=== PATIENT | male | born 1985 | race Caucasian/White ===

== ENCOUNTER 2020-05-23 13:13 | Outpatient (CLI) | payer BC, SELFPAY ==
[2020-05-23] MEDS: iohexol 300 mg/mL 50 mL Btl PO (14:01)
--- NOTE | 2020-05-23 15:00 | CT_ITS ---
WS: [id number] CT ABDOMEN PELVIS TECHNIQUE: Noncontrast CT of the abdomen and pelvis with coronal and sagittal reformatted images. CLINICAL INFORMATION: large ventral hernia, Abdomen RUQ COMPARISON: 7 DLP: 899.[address] scans at [facility] use at least one of these dose optimization techniques: automat ed exposure control; mA and/or kV adjustment per patient size (includes targeted exams where dose is matched to clinical indication); or iterative reconstruction. FINDINGS: Hepatomegaly. Diffuse fatty infiltration of the liver. Lung bases are well aerated. Normal noncontras t spleen. Normal GE junction. Fatty atrophy of the pancreas. Adrenal glands are normal. No hydronephr osis in either kidney. Normal caliber abdominal aorta. Sigmoid diverticulosis. No evidence of acute diverticulitis. No evidence of high-grade small or large bowel obstruction. No abdominal or pelvic lymphadenopathy. CT/CT abdomen pelvis wo con [id number] IMPRESSION: 1. No hydronephrosis in either kidney. No obstructing renal or ureteral calcul i. 2. Normal caliber abdominal aorta. 3. Hepatomegaly with diffuse fatty infiltration of the liver. 4. No evidence of ventral abdominal wall hernia. 5. Tiny incidental fat-containing umbilical hernia.
== END 2020-05-23 13:14 | disposition home or self-care (01) ==
LOC: RADWPI 13:18
PROVIDERS: PCP Family Medicine Adult Medicine; Visit Provider Family Medicine Adult Medicine
DX: K43.9 Ventral hernia without obstruction or gangrene (principal); R16.0 Hepatomegaly, not elsewhere classified; K76.0 Fatty (change of) liver, not elsewhere classified; K42.9 Umbilical hernia without obstruction or gangrene
CPT/HCPCS: 74176; Q9967

== ENCOUNTER → 2020-12-12 08:21 | Outpatient (BNVA) | payer BC, SELFPAY | PROVIDERS: PCP Family Medicine Adult Medicine; Visit Provider Family Medicine Adult Medicine | DX: E66.01 Morbid (severe) obesity due to excess calories (principal); E11.9 Type 2 diabetes mellitus without complications; Z00.00 Encounter for general adult medical examination without abnormal findings; J45.909 Unspecified asthma, uncomplicated; Z13.6 Encounter for screening for cardiovascular disorders | CPT/HCPCS: 80053; 83036; 84443; 85025 ==

== ENCOUNTER → 2021-07-10 11:24 | Outpatient (BNVA) | payer BC, SELFPAY | PROVIDERS: PCP Family Medicine Adult Medicine; Visit Provider Registered Nurse Neonatal Intensive Care | DX: Z20.822 Contact with and (suspected) exposure to COVID-19 (principal) | CPT/HCPCS: 87635 ==

== ENCOUNTER 2021-09-10 07:45 | Emergency (ER) | payer BC, SELFPAY ==
[2021-09-10 08:16] VITALS: BP 166/107; PULSE 81; RESP 16; TEMP 37; O2SAT 96; BMI 43.5
--- NOTE | 2021-09-10 08:35 | XR_ITS ---
WS: [id number] Portable AP upright chest, 09/10/2021 Clinical Data: asthma attack Comparison: Portable chest, 04/02/2019. Findings: No nodules, masses or effusions are seen. The heart is normal. The pulmonary vascularity is not increased. No pneumonia or pneumothorax is seen. XR/XR chest 1V portable [id number] Impression: Negative chest.
--- NOTE | 2021-09-10 11:39 | W.ED.SOB ---
HPI - SOB/Dyspnea General: Chief Complaint: Shortness of Breath/Dyspnea Stated Complaint: Asthma problems Time Seen by Provider: 09/10/21 11:22 History of Present Illness: HPI Narrative: Patient is a 36-year-old male who comes to the ED with asthma attack. Patient has a history of asthma. His symptoms started last night after he mowed the lawn. He started having some wheezing and shortness of breath. Denies any cough, chest pains, fevers or chills or any other symptoms. he used his albuterol inhaler a couple times last night and this morning and it did not help. Associated symptoms: Deny abdominal pain, chest pain, fever(s), nausea, orthopnea, palpitations or vomiting Review of Systems Const: Denies: fever(s), chills or fatigue Eyes: Denies: change in vision or eye discomfort ENMT: Denies: throat pain, odynophagia, nasal discharge or nasal congestion Card: Denies: chest pain, palpitations, edema, swelling of feet/ankles, dyspnea on exertion or orthopnea Resp: Reports: dyspnea and wheezing; Denies: productive cough or non-productive cough GI: Denies: abdominal pain, nausea, vomiting, diarrhea, constipation or hematochezia : Denies: flank pain, difficulty urinating, dysuria or hematuria Musc: Denies: neck pain, back pain or extremity swelling Skin/Breast: Denies: rash or new lesions Neuro: Denies: headache(s), numbness in extremities or weakness in extremities PFS ED PFSH: Medical History Asthma Depressed Diabetes mellitus, new onset Encounter for wellness examination Morbid obesity with BMI of 45.0-49.9, adult Umbilical hernia Family History Denies family history of Anesthesia complication Bleeding disorder Social History Smoking and tobacco status: current every day smoker smokeless tobacco Smokeless tobacco user: snuff Alcohol intake: never Current occupational status: employed Physical Exam Const: COMMON NORMALS: no acute distress, patient oriented x3 and alert GENERAL APPEARANCE: cooperative HENMT: COMMON NORMALS: normocephalic HEAD & SCALP: normocephalic MOUTH: Normal oral and palatal mucosa present THROAT: posterior oropharynx normal and uvula midline Neck/C-Spine: COMMON NORMALS: supple GENERAL: Yes normal visual inspection Resp: COMMON NORMALS: normal respiratory effort, No retractions and No use of accessory muscles AUSCULTATION: wheezes expiratory wheezes and throughout Cardio: COMMON NORMALS: regular rate, regular rhythm, S1 normal heart sound present, S2 normal heart sound present, No gallops present (Cardio), No clicks present (Cardio), No murmurs present (Cardio) and Peripheral pulses 2+ throughout RATE: regular rate RHYTHM: regular rhythm HEART SOUNDS: S1 normal heart sound present and S2 normal heart sound present PERIPHERAL PULSES: Peripheral pulses 2+ throughout GI: COMMON NORMALS: Normal to inspection, nondistended, normoactive bowel sounds present, Soft to palpation, non-tender and no masses PALPATION: Yes Soft to palpation : COMMON NORMALS: Yes no CVA tenderness BLADDER/KIDNEY EXAM: Yes no CVA tenderness Back/Pelvis: COMMON NORMALS: no CVA tenderness Extremity: COMMON NORMALS: normal to inspection Neuro: COMMON NORMALS: patient oriented x3 and moves all extremities SENSORIUM/ORIENTATION: Yes alert Skin: GENERAL SKIN EXAM: dry skin Course Vital Signs: Vital signs: Vital Signs Temperature 98.6 F 09/10/21 08:16 Pulse Rate 80 09/10/21 13:03 Respiratory Rate 17 09/10/21 12:57 Blood Pressure 166/107 09/10/21 08:16 Pulse Oximetry 95 09/10/21 12:57 MDM - SOB/Dyspnea Medical Decision Making Patient is a 36-year-old male comes to the ED with an asthma attack. Patient has a past medical history of asthma and says he said developing some wheezing and shortness of breath after mowing grass yesterday. He used an albuterol inhaler at home and does not improved his symptoms. Vitals are stable. Patient appears nontoxic and in no acute distress or pain. Patient does have wheezing throughout all lung saenz upon exam. He was given a dose of Solu-Medrol and a DuoNeb breathing treatment while here in the ED and his symptoms improved. Chest x-ray showed no acute findings. He was diagnosed with an asthma exacerbation. Discharged home with a prescription for prednisone. Follow-up with PCP in 5 to 7 days for reevaluation. Return ED precautions given. Patient is to agree with plan. Lab Data Labs/Radiology: Radiology Impressions Chest X-Ray 09/10/21 08:35 Impression: Negative chest. Discharge Plan Discharge Patient Disposition: Home Clinical Impression: Asthma exacerbation Qualifiers: Asthma severity: mild Asthma persistence: intermittent Qualified Code(s): J45.21 - Mild intermittent asthma with (acute) exacerbation Condition: Stable Prescriptions: New prednisone 20 mg tablet 20 mg PO BID 5 Days Qty: 10 0RF No Action metformin 500 mg tablet 500 mg PO BID Qty: 60 5RF Rx Instructions: 340 B Medications albuterol sulfate 2.5 mg/0.5 mL solution for nebulization 2.5 mg inhalation ONCE Qty: 1 0RF montelukast [Singulair] 10 mg tablet 10 mg PO DAILY Qty: 30 0RF (DME) blood-glucose meter [OneTouch Verio Reflect Meter] Misc See Rx Instructions .Route Qty: 1 0RF Rx Instructions: As directed, TEST ONCE A DAY. (DME) lancets [OneTouch Delica Plus Lancet] 33 gauge misc See Rx Instructions .Route Qty: 100 0RF Rx Instructions: As directed, TEST ONCE A DAY (DME) OneTouch Ultra Test Strip See Rx Instructions .Route Qty: 100 0RF Rx Instructions: As directed, TEST ONCE A DAY. Discharge Orders: Discharge ED (Routine); Ordered 09/10/21 Ordered By: Marco Hannon Referrals: Hemanth Fierro MD [Primary Care Provider] - Discharge Diet: Regular Discharge Activity: Increase activity as tolerated Patient Instructions: Asthma Exacerbation - Adult, Wheezing (ED) Activity Restrictions/Additional Instructions: Follow-up with medical provider as directed in the next 5 to 7 days for reevaluation. Take medications as prescribed. Return to the ER or your medical provider if condition worsens. Please read and understand discharge instructions. Thank you for choosing [facility] for your healthcare needs today. Please realize this is an emergency room and that we are providing you with a medical screening exam and this may not be complete and all inclusive of all the testing and or work up that you may need to determine your ailment or severity of your illness. It is very important that you follow up as instructed or that you return to the Emergency Department should you have concerns or if your condition changes or worsens in any way. Stand Alone Forms: Work/School Release Coding Level of Care Code ED [employer] for Chg Fwd Exam Comprehensive
[2021-09-10 12:57] VITALS: PULSE 82; RESP 17; O2SAT 95
[2021-09-10] MEDS: ipratropium-albuterol 3 mL Neb 6 ML INHALATION (12:57)
[2021-09-10 13:03] VITALS: PULSE 80
== END 2021-09-10 13:00 | disposition home or self-care (01) ==
PROVIDERS: Emergency Provider Physician Assistant; PCP Family Medicine Adult Medicine
DX: J45.21 Mild intermittent asthma with (acute) exacerbation (principal); F17.220 Nicotine dependence, chewing tobacco, uncomplicated
CPT/HCPCS: 71045; 94640; 96372; 99283; J2930

== ENCOUNTER 2021-10-26 01:14 | Emergency (ER) | payer BC, SELFPAY ==
--- NOTE | 2021-10-26 01:15 | XRR_ITS ---
PROCEDURE INFORMATION: Exam: XR Chest Exam date and time: 10/26/2021 1:18 AM Age: 36 years old Clinical indication: Cough and shortness of breath; Patient HX: Cough with SOB. History of asthma. TECHNIQUE: Imaging protocol: XR of the chest. Views: 1 view. COMPARISON: CR XR chest 1V portable [id number] 09/10/2021 8:40 AM FINDINGS: Lungs: Unremarkable. No consolidation. Pleural spaces: Unremarkable. No pleural effusion. No pneumothorax. Heart/Mediastinum: Unremarkable. No cardiomegaly. Bones/joints: Unremarkable. XR/XR chest 1V portable [id number] IMPRESSION: No acute findings.
[2021-10-26 01:19] VITALS: BP 158/108; PULSE 98; RESP 24; TEMP 36.9; O2SAT 91; BMI 43.4
--- NOTE | 2021-10-26 01:23 | W.ED.SOB ---
HPI - SOB/Dyspnea General: Chief Complaint: Shortness of Breath/Dyspnea Stated Complaint: SOB Time Seen by Provider: 10/26/21 01:15 Source: patient Mode of arrival: ambulatory History of Present Illness: HPI Narrative: 36-year-old male who has a long history of asthma states that he had mowed the yard on Friday and since and has had increased wheezing. He states he does have a nebulizer at home and he is just had increased shortness of breath and wheezing. States it is worse with activity improved with rest. Denies any cough denies any fever. Denies any chest pain. Associated symptoms: Deny abdominal pain, chest pain, fever(s), nausea or vomiting Review of Systems Const: Denies: fever(s), chills, body aches or change in appetite Eyes: Denies: blurry vision or eye discomfort ENMT: Denies: throat pain or dental pain Card: Denies: chest pain Resp: Reports: dyspnea and wheezing GI: Denies: abdominal pain, nausea, vomiting or diarrhea : Denies: dysuria Musc: Denies: neck pain or back pain Skin/Breast: Denies: rash Neuro: Denies: headache(s) Psych: Denies: depression Gordy/Lymph: Denies: easy bruising All/Imm: Denies: urticaria PFSH ED PFSH: Medical History Asthma Depressed Diabetes mellitus, new onset Encounter for wellness examination Morbid obesity with BMI of 45.0-49.9, adult Umbilical hernia Family History Denies family history of Anesthesia complication Bleeding disorder Social History Smoking and tobacco status: current every day smoker smokeless tobacco Smokeless tobacco user: snuff Alcohol intake: never Current occupational status: employed Physical Exam Const: COMMON NORMALS: no acute distress, patient oriented x3 and healthy appearing HENMT: COMMON NORMALS: normocephalic and atraumatic HEAD & SCALP: normocephalic and atraumatic Eye: COMMON NORMALS: Equal, round and reactive pupils present and EOMs intact bilaterally PUPIL: Yes Equal, round and reactive pupils present Neck/C-Spine: COMMON NORMALS: full ROM and supple Chest: COMMONS NORMALS: normal inspection of the chest and normal palpation of entire chest wall Resp: COMMON NORMALS: normal respiratory effort, No retractions and No use of accessory muscles AUSCULTATION: wheezes Cardio: COMMON NORMALS: regular rate, regular rhythm and No murmurs present (Cardio) RATE: regular rate RHYTHM: regular rhythm GI: COMMON NORMALS: Normal to inspection, nondistended, normoactive bowel sounds present, Soft to palpation, non-tender and no masses PALPATION: Yes Soft to palpation Extremity: COMMON NORMALS: normal to inspection and full ROM Neuro: COMMON NORMALS: patient oriented x3, moves all extremities and no focal motor deficits Psych: COMMON NORMALS: mental status grossly normal, Normal thought process present and cooperative THOUGHT PROCESS: Normal thought process present Skin: COMMON NORMALS: no rashes or lesions noted and no wounds GENERAL SKIN EXAM: no rashes or lesions noted Course Vital Signs: Vital signs: Vital Signs Temperature 98.4 F 10/26/21 01:34 Pulse Rate 98 10/26/21 01:34 Respiratory Rate 24 H 10/26/21 01:34 Blood Pressure 158/108 10/26/21 01:34 Pulse Oximetry 91 10/26/21 01:34 MDM - SOB/Dyspnea Medical Decision Making Breathing treatmentPatient presents here with asthma exacerbation he feels much improved here after his steroids x-ray here is normal we will prescribe him albuterol with a 5-day course of prednisone he is to follow-up with PCP and return if worsening he understands agrees to plan. Lab Data : 10/26/21 01:24 10/26/21 01:24 Labs/Radiology: Laboratory Results WBC 9.0 10^3/uL (4.0-10.0) 10/26/21 01:24 RBC 5.36 10^6/uL (4.1-5.3) H 10/26/21 01:24 Hgb 15.5 g/dL (11.7-16.6) 10/26/21 01:24 Hct 44.5 % (42.0-52.0) 10/26/21 01:24 MCV 83.0 fl (80-94) 10/26/21 01:24 MCH 28.9 pg (28.0-34.0) 10/26/21 01:24 MCHC 34.8 g/dL (30.0-36.0) 10/26/21 01:24 RDW 11.9 % (12.1-15.1) L 10/26/21 01:24 Plt Count 236 10^3/cmm (130-400) 10/26/21 01:24 MPV 10.7 fL (7.4-10.4) H 10/26/21 01:24 Neut % (Auto) 50.7 % 10/26/21 01:24 Lymph % (Auto) 32.9 % 10/26/21 01:24 Mcculloch % (Auto) 10.1 % 10/26/21 01:24 Eos % (Auto) 4.9 % 10/26/21 01:24 Baso % (Auto) 0.8 % 10/26/21 01:24 Neut # (Auto) 4.57 10^3/uL (1.8-7.7) 10/26/21 01:24 Lymph # (Auto) 3.0 10^3/uL (0.8-4.8) 10/26/21 01:24 Mcculloch # (Auto) 0.9 10^3/uL (0.2-0.9) 10/26/21 01:24 Eos # (Auto) 0.4 10^3/uL (0.0-0.8) 10/26/21 01:24 Baso # (Auto) 0.1 10^3/uL (0.0-0.1) 10/26/21 01:24 Nucleated RBC % (auto) 0 % 10/26/21 01:24 Nucleated RBCs # 0.0 /100WBC 10/26/21 01:24 Sodium 137 mmol/L (136-145) 10/26/21 01:24 Chloride 98 mmol/L (98-107) 10/26/21 01:24 Carbon Dioxide 27 mmol/L (22-29) 10/26/21 01:24 BUN 12 mg/dL (6-20) 10/26/21 01:24 Creatinine 0.8 mg/dL (0.7-1.2) 10/26/21 01:24 GFR Calculation 109.4 mL/min (90-130) 10/26/21 01:24 Calculated Osmolality 295 mOsm/kg (285-295) 10/26/21 01:24 Calcium 9.1 mg/dL (8.5-10.5) 10/26/21 01:24 Total Bilirubin 0.4 mg/dL (0.15-1.2) 10/26/21 01:24 AST 17 U/L (0-40) 10/26/21 01:24 ALT 31 U/L (0-41) 10/26/21 01:24 Alkaline Phosphatase 87 IU/L (40-130) 10/26/21 01:24 Total Protein 7.6 g/dL (6.6-8.7) 10/26/21 01:24 Albumin 4.3 g/dL (3.5-5.2) 10/26/21 01:24 Globulin 3.3 g/dL (1.3-4.6) 10/26/21 01:24 Lipase 32 U/L (13-60) 10/26/21 01:24 Discharge Plan Discharge Patient Disposition: Home Clinical Impression: Asthma with exacerbation Condition: Stable Prescriptions: New prednisone 50 mg tablet 50 mg PO DAILY Qty: 5 0RF albuterol sulfate 90 mcg/actuation HFA aerosol inhaler 2 inh INHALATION Q6H PRN (Reason: shortness of breath or wheezing) Qty: 8 0RF No Action metformin 500 mg tablet 500 mg PO BID Qty: 60 5RF Rx Instructions: 340 B Medications albuterol sulfate 2.5 mg/0.5 mL solution for nebulization 2.5 mg inhalation ONCE Qty: 1 0RF montelukast [Singulair] 10 mg tablet 10 mg PO DAILY Qty: 30 0RF (DME) blood-glucose meter [OneTouch Verio Reflect Meter] Misc See Rx Instructions .Route Qty: 1 0RF Rx Instructions: As directed, TEST ONCE A DAY. (DME) lancets [OneTouch Delica Plus Lancet] 33 gauge misc See Rx Instructions .Route Qty: 100 0RF Rx Instructions: As directed, TEST ONCE A DAY (DME) OneTouch Ultra Test Strip See Rx Instructions .Route Qty: 100 0RF Rx Instructions: As directed, TEST ONCE A DAY. 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
[2021-10-26 01:34] VITALS: BP 158/108; PULSE 98; RESP 24; TEMP 36.9; O2SAT 91
[2021-10-26] MEDS: ondansetron 2 mg/ML SDV 2 mL 4 MG IVP (01:34)
[2021-10-26 01:56] LABS: Basophils # 0.1 10^3/uL (0.0-0.1); Basophils % 0.8 %; Eosinophils # 0.4 10^3/uL (0.0-0.8); Eosinophils % 4.9 %; Hematocrit 44.5 % (42.0-52.0); Hemoglobin 15.5 g/dL (11.7-16.6); Lymphocytes % 32.9 %; Mean Corpuscular HGB Conc 34.8 g/dL (30.0-36.0); Mean Corpuscular Hemoglobin 28.9 pg (28.0-34.0); Mean Platelet Volume 10.7 fL (7.4-10.4); Monocytes # 0.9 10^3/uL (0.2-0.9); Monocytes % 10.1 %; Neutrophils # 4.57 10^3/uL (1.8-7.7); Neutrophils % 50.7 %; Nucleated Red Blood Cells % 0 %; Platelet Count 236 10^3/cmm (130-400); Red Blood Count 5.36 10^6/uL (4.1-5.3); Red Cell Distribution Width 11.9 % (12.1-15.1)
[2021-10-26 02:00] VITALS: PULSE 100; RESP 18; O2SAT 97
[2021-10-26] MEDS: ipratropium-albuterol 3 mL Neb INHALATION (02:00)
[2021-10-26 02:10] VITALS: PULSE 108
[2021-10-26 02:15] LABS: Alanine Aminotransferase 31 U/L (0-41); Albumin Level 4.3 g/dL (3.5-5.2); Alkaline Phosphatase 87 IU/L (40-130); Aspartate Amino Transferase 17 U/L (0-40); Blood Urea Nitrogen 12 mg/dL (6-20); Calcium 9.1 mg/dL (8.5-10.5); Carbon Dioxide 27 mmol/L (22-29); Chloride 98 mmol/L (98-107); Globulin 3.3 g/dL (1.3-4.6); Glomerular Filtration Rate 109.4 mL/min (90-130); Glucose 299 mg/dL (65-115); Lipase 32 U/L (13-60); Osmolality Calculated 295 mOsm/kg (285-295); Sodium 137 mmol/L (136-145); Total Bilirubin 0.4 mg/dL (0.15-1.2); Total Protein 7.6 g/dL (6.6-8.7)
[2021-10-26 02:20] LABS: Anion Gap 16.1 (5-19); Potassium 4.1 mmol/L (3.5-5.1)
[2021-10-26 02:34] VITALS: BP 137/93; PULSE 89; RESP 24; TEMP 36.9; O2SAT 95
== END 2021-10-26 02:35 | disposition home or self-care (01) ==
PROVIDERS: Emergency Provider Emergency Medicine; PCP Family Medicine Adult Medicine
DX: J45.901 Unspecified asthma with (acute) exacerbation (principal); E11.9 Type 2 diabetes mellitus without complications; E66.01 Morbid (severe) obesity due to excess calories; Z68.41 Body mass index [BMI] 40.0-44.9, adult; Z79.84 Long term (current) use of oral hypoglycemic drugs
CPT/HCPCS: 71045; 80053; 83690; 85025; 94640; 96374; 96375; 99284; J2405; J2930

== ENCOUNTER → 2022-07-05 10:09 | Outpatient (BNVA) | payer SELFPAY | PROVIDERS: PCP Family Medicine Adult Medicine; Visit Provider Family Medicine Adult Medicine | DX: E11.9 Type 2 diabetes mellitus without complications (principal); Z78.9 Other specified health status; E66.01 Morbid (severe) obesity due to excess calories; Z68.42 Body mass index [BMI] 45.0-49.9, adult; M62.08 Separation of muscle (nontraumatic), other site; R03.0 Elevated blood-pressure reading, without diagnosis of hypertension; J45.909 Unspecified asthma, uncomplicated | CPT/HCPCS: 80048; 83036; 84443 ==

== ENCOUNTER → 2022-08-21 08:45 | Outpatient (BNVA) | payer SELFPAY | PROVIDERS: PCP Family Medicine Adult Medicine; Referring Provider Internal Medicine; Visit Provider Internal Medicine | DX: E11.9 Type 2 diabetes mellitus without complications (principal) | CPT/HCPCS: 36415; 80061 ==

== ENCOUNTER 2022-11-18 14:47 | Outpatient (CLI) | payer SELFPAY ==
[2022-11-18 15:34] LABS: Estmated Average Glucose 180; Hemoglobin A1C 7.9 % (4.0-6.0)
== END 2022-11-18 14:48 | disposition home or self-care (01) ==
PROVIDERS: PCP Family Medicine Adult Medicine; Visit Provider Internal Medicine
DX: E11.9 Type 2 diabetes mellitus without complications (principal); E78.2 Mixed hyperlipidemia
CPT/HCPCS: 36415; 83036

== ENCOUNTER → 2023-08-27 11:18 | Outpatient (BNVA) | payer OTHER, SELFPAY | PROVIDERS: PCP Family Medicine Adult Medicine; Visit Provider Internal Medicine | DX: E11.9 Type 2 diabetes mellitus without complications (principal); E78.2 Mixed hyperlipidemia | CPT/HCPCS: 80053; 80061; 82044; 83036 ==

== ENCOUNTER → 2023-12-04 12:00 | Outpatient (BNVA) | payer OTHER, SELFPAY | PROVIDERS: PCP Family Medicine Adult Medicine; Visit Provider Internal Medicine | DX: E11.9 Type 2 diabetes mellitus without complications (principal); E78.2 Mixed hyperlipidemia | CPT/HCPCS: 36415; 80053; 80061; 82044; 83036 ==

== ENCOUNTER 2024-03-02 15:51 | Outpatient (CLI) | payer OTHER, SELFPAY | END 2024-03-02 15:52 | disposition home or self-care (01) | LOC: SLEEP 15:52 | PROVIDERS: PCP Family Medicine Adult Medicine; Visit Provider Family Medicine Adult Medicine | DX: G47.33 Obstructive sleep apnea (adult) (pediatric) (principal) | CPT/HCPCS: G0399 ==

== ENCOUNTER → 2024-06-30 16:23 | Outpatient (BNVA) | payer OTHER, SELFPAY | PROVIDERS: PCP Family Medicine Adult Medicine; Visit Provider Family Medicine | DX: R50.9 Fever, unspecified (principal) | CPT/HCPCS: 87400 ==